=== PATIENT | female | born 1965 | race Caucasian/White ===

== ENCOUNTER 2016-06-26 09:24 | Observation (INO) | payer BC, SELFPAY ==
[2016-06-26 09:32] VITALS: BMI 25.0
[2016-06-26 09:54] LABS: AUTOMATED BASOPHIL 0.8 % (0-2); AUTOMATED EOSINOPHIL 5.6 % (0-5); AUTOMATED LYMPH 29.1 % (17-44); AUTOMATED MONOCYTE 5.3 % (3-10); AUTOMATED NEUTROPHIL 59.2 % (45-76); MPV 8.2 fL (7.4-10.4)
[2016-06-26] MEDS ORDERED: MORPHINE 4 MG/ML INJECTION IV ONE ×2 (09:55→12:14)
[2016-06-26] MEDS ORDERED: ONDANSETRON HCL 4 MG/2 ML VIAL IV ONE ×2 (09:55→12:14)
--- NOTE | 2016-06-26 10:02 | EDPRACDOC ---
<Rosa Pérez Aram - Last Filed: 06/26/16 12:33> - General Information Information Source: Patient - History of Present Illness Onset: 0500 HPI: C/o sudden onset generalized weakness and dizzyness 2 hours after waking up, accompanied with "stinging" bilateral chest pain radiating into both arms and both side of neck, with mild SOB, and N/V. Has had 2-3 episodes of same past week, but previous episodes resolved after 5-10 mins. Today sx did not resolve and are active here in ED. Also c/o a cough and RUQ pain intermittently, random pattern onset. Denies fever, sore throat, changes in urine or BM. Med hx = asthma, fibromyalgia, kidney stones. Surgical hx = c section, BTL. Symptoms Started: Reports: Suddenly Symptoms Description: Constant Weakness: Bilateral: Generalized Symptoms: Reports: Weak Associated signs and symptoms:: Reports: Chest pain, Nausea, Palpitations, Vomiting <Franklin Perkins - Last Filed: 06/26/16 19:14> - General Information Chief Complaint: Generalized Weakness Stated Complaint: SHOB/DIZZINESS Time Seen by Provider: 06/26/16 09:56 Home Medications: Home Medications Meclizine HCl [Antivert] 50 mg PO BID PRN 06/30/13 Fluticasone Propionate [Flonase] 1 - 2 spray CAPO DAILY PRN 01/26/15 Ranitidine HCl [Zantac 75] 150 mg PO DAILY PRN 01/26/15 Pregabalin [Lyrica] 75 mg PO TID 07/15/15 Albuterol Sulfate Nebs [Proventil, Ventolin] 3 ml INH QID PRN 06/26/16 Omeprazole 20 mg PO DAILY 06/26/16 Oxycodone HCl/Acetaminophen [Percocet 10-325 mg Tablet] 1 tab PO .SEE COMMENTS 06/26/16 Allergies/Adverse Reactions: Allergies Allergy/AdvReac Type Severity Reaction Status Date / Time aspirin Allergy Nausea/Vomi Verified 06/26/16 13:56 tin ED Past Medical History - History Reviewed Yes Nurses notes reviewed and agree except as marked - Patient Medical History Respiratory History: Reports: Asthma. Denies: Pneumonia GI/ History: Reports: Kidney Stones (right kidney) Psychological History: Reports: Depression Systemic History: Reports: Cancer (cervical - abnormal cells) Surgical History: Reports: Other ( and tubal ligation) Date of Last Radiation Treatment: 20 yrs ago - Family Medical History Reports: Hypertension (mother & MGF), Diabetes (mother & MGF), Cancer (MGM), Stroke, Cardiac Disorders (father) - Social Medical History Smoking Status: Never smoker <Franklin Perkins - Last Filed: 06/26/16 19:14> EDM Review of Systems - Review of Systems ROS Negative Except as Marked: Yes All systems reviewed and were negative except as marked Constitutional: Weakness Cardiovascular: Chest Pain Gastrointestinal: Nausea, Pain, Vomiting Neurological: Dizziness, Weakness <Franklin Perkins - Last Filed: 06/26/16 19:14> - Physical Exam Last recorded Vital Signs: Last Vital Signs Temp 98.5 F 06/26/16 09:31 Pulse 75 06/26/16 11:20 Resp 18 06/26/16 11:20 BP 119/70 06/26/16 11:20 Pulse Ox 99 06/26/16 11:20 Oxygen Pulse Oxygen Saturation 99 O2 Device Oxygen Flow Rate Fraction of Inspired Oxygen ( FIO2) <Rosa Pérez - Last Filed: 06/26/16 12:33> - Physical Exam Constitutional: Alert Oriented to: Time, Person, Place Last recorded Vital Signs: Last Vital Signs Temp 98.5 F 06/26/16 09:31 Pulse 93 06/26/16 09:31 Resp 18 06/26/16 09:31 BP 125/69 06/26/16 09:31 Pulse Ox 97 06/26/16 09:31 Oxygen Pulse Oxygen Saturation 97 O2 Device Oxygen Flow Rate Fraction of Inspired Oxygen ( FIO2) - HEENT Head: Normal Eye Exam: negative: Conjunctival Injection, Scleral Icterus Oropharynx: negative: Drooling TMJ: Normal Nose: No Symptoms Reported Neck: Normal - Respiratory/Cardiovascular Respiratory: Normal - CTA Cardiovascular: Normal - GI Tenderness: Moderate, RUQ Darden's Sign: Positive - Musculoskeletal Back: Normal Extremities: Normal - Integumentary Skin: Normal - Neurologic Mood Description: Normal Thought: Coherent <Franklin Perkins - Last Filed: 06/26/16 19:14> NIH Stroke Scale Initial Evaluation Level of Consciousness: Alert LOC- Question: Answers Both Correctly LOC Commands: Both Task Correctly Best Gaze: Normal Visual: No Visual Loss Facial Palsy: Normal Movement Motor Arm LEFT: No Drift Motor Arm RIGHT: No Drift Motor Leg LEFT: No Drift Motor Leg RIGHT: No Drift Limb Ataxia: Absent Sensory: Normal Best Language: No Aphasia Dysarthria: Normal Extinction and Inattention: No Abnormality (Neglect) Score: 0out of42 <Franklin Perkins - Last Filed: 06/26/16 19:14> - Neurologic Orientation: Time, Person, Place Speech: Fluent Coginitive: Normal Affect: Normal Thought: Coherent Perception: Normal <Franklin Perkins - Last Filed: 06/26/16 19:14> - Results 06/26/16 09:45 06/26/16 09:45 WBC 6.8 xk/uL (3.8-10.8) 06/26/16 09:45 RBC 4.94 xM/uL (4.20-5.40) 06/26/16 09:45 Hgb 15.8 g/dL (12.0-16.0) 06/26/16 09:45 Hct 45.8 % (36-47) 06/26/16 09:45 MCV 93 fL (81-99) 06/26/16 09:45 MCH 32.0 pg (27-32) 06/26/16 09:45 MCHC 34.5 g/dl (33-36) 06/26/16 09:45 RDW 12.6 % (11.5-14.5) 06/26/16 09:45 Plt Count 180 xk/uL (130-400) 06/26/16 09:45 MPV 8.2 fL (7.4-10.4) 06/26/16 09:45 Neut % (Auto) 59.2 % (45-76) 06/26/16 09:45 Lymph % (Auto) 29.1 % (17-44) 06/26/16 09:45 Estill % (Auto) 5.3 % (3-10) 06/26/16 09:45 Eos % (Auto) 5.6 % (0-5) H 06/26/16 09:45 Baso % (Auto) 0.8 % (0-2) 06/26/16 09:45 Absolute Neuts (auto) 4.01 xk/uL (1.7-8.2) 06/26/16 09:45 Absolute Lymphs (auto) 1.97 xk/uL (0.65-4.75) 06/26/16 09:45 PT 10.3 SEC (9.2-11.2) 06/26/16 09:45 INR 1.0 06/26/16 09:45 APTT 23.3 SEC (22-35) 06/26/16 09:45 Sodium 141 mEq/L (137-146) 06/26/16 09:45 Potassium 3.7 mEq/L (3.5-5.1) 06/26/16 09:45 Chloride 104 mEq/L (98-107) 06/26/16 09:45 Carbon Dioxide 29 mMOL/L (22-33) 06/26/16 09:45 Anion Gap 12 mEq/L (8-16) 06/26/16 09:45 BUN 12 MG/DL (7-17) 06/26/16 09:45 Creatinine 0.90 MG/DL (0.52-1.04) 06/26/16 09:45 Estimated GFR (MDRD) > 60 mL/min (>=60) 06/26/16 09:45 Glucose 96 MG/DL (70-99) 06/26/16 09:45 Calculated Osmolality 271 MOs/Kg (270-290) 06/26/16 09:45 Calcium 9.4 MG/DL (8.4-10.2) 06/26/16 09:45 Total Bilirubin 0.6 MG/DL (0.2-1.3) 06/26/16 09:45 AST 37 IU/L (14-36) H 06/26/16 09:45 ALT 42 IU/L (9-52) 06/26/16 09:45 Alkaline Phosphatase 96 IU/L (38-126) 06/26/16 09:45 Troponin I < 0.01 ng/mL (<.04) 06/26/16 09:45 Ffu-H-Czmvwybcrmw Pept 41 pg/mL (0-900) 06/26/16 09:45 Total Protein 7.4 G/DL (6.3-8.2) 06/26/16 09:45 Albumin 4.4 G/DL (3.5-5.0) 06/26/16 09:45 Lipase 45 U/L (23-300) 06/26/16 09:45 Urine Color Yellow 06/26/16 09:57 Urine Clarity Clear 06/26/16 09:57 Urine pH 6.0 (5.0-8.0) 06/26/16 09:57 Ur Specific Lincoln </=1.005 (1.003-1.035) 06/26/16 09:57 Urine Protein Neg (NEG/TRACE) 06/26/16 09:57 Urine Glucose (UA) Neg (NEGATIVE) 06/26/16 09:57 Urine Ketones Neg (NEGATIVE) 06/26/16 09:57 Urine Occult Blood Neg (NEG/TRACE) 06/26/16 09:57 Urine Nitrite Neg (NEGATIVE) 06/26/16 09:57 Urine Bilirubin Neg (NEGATIVE) 06/26/16 09:57 Urine Urobilinogen <2.0 MG/DL (0-1) 06/26/16 09:57 Ur Leukocyte Esterase Neg (NEGATIVE) 06/26/16 09:57 Urine RBC 0-2 (0-5) 06/26/16 09:57 Urine WBC 0-2 (0-5) 06/26/16 09:57 Ur Epithelial Cells Occ 06/26/16 09:57 Lab Results 06/26/16 06/26/16 06/26/16 09:57 09:45 09:45 WBC 6.8 RBC 4.94 Hgb 15.8 Hct 45.8 MCV 93 MCH 32.0 MCHC 34.5 RDW 12.6 Plt Count 180 MPV 8.2 Neut % (Auto) 59.2 Lymph % (Auto) 29.1 Estill % (Auto) 5.3 Eos % (Auto) 5.6 H Baso % (Auto) 0.8 Absolute Neuts (auto) 4.01 Absolute Lymphs (auto) 1.97 PT 10.3 INR 1.0 APTT 23.3 Sodium Potassium Chloride Carbon Dioxide Anion Gap BUN Creatinine Estimated GFR (MDRD) Glucose Calculated Osmolality Calcium Total Bilirubin AST ALT Alkaline Phosphatase Troponin I Pvb-L-Voufydzrrer Pept Total Protein Albumin Lipase Urine Color Yellow Urine Clarity Clear Urine pH 6.0 Ur Specific Lincoln </=1.005 Urine Protein Neg Urine Glucose (UA) Neg Urine Ketones Neg Urine Occult Blood Neg Urine Nitrite Neg Urine Bilirubin Neg Urine Urobilinogen <2.0 Ur Leukocyte Esterase Neg Urine RBC 0-2 Urine WBC 0-2 Ur Epithelial Cells Occ 06/26/16 09:45 WBC RBC Hgb Hct MCV MCH MCHC RDW Plt Count MPV Neut % (Auto) Lymph % (Auto) Estill % (Auto) Eos % (Auto) Baso % (Auto) Absolute Neuts (auto) Absolute Lymphs (auto) PT INR APTT Sodium 141 Potassium 3.7 Chloride 104 Carbon Dioxide 29 Anion Gap 12 BUN 12 Creatinine 0.90 Estimated GFR (MDRD) > 60 Glucose 96 Calculated Osmolality 271 Calcium 9.4 Total Bilirubin 0.6 AST 37 H ALT 42 Alkaline Phosphatase 96 Troponin I < 0.01 Dzq-P-Dcaduntvpkh Pept 41 Total Protein 7.4 Albumin 4.4 Lipase 45 Urine Color Urine Clarity Urine pH Ur Specific Lincoln Urine Protein Urine Glucose (UA) Urine Ketones Urine Occult Blood Urine Nitrite Urine Bilirubin Urine Urobilinogen Ur Leukocyte Esterase Urine RBC Urine WBC Ur Epithelial Cells <Rosa Pérez - Last Filed: 06/26/16 12:33> - Results 06/26/16 09:45 06/26/16 09:45 WBC 6.8 xk/uL (3.8-10.8) 06/26/16 09:45 RBC 4.94 xM/uL (4.20-5.40) 06/26/16 09:45 Hgb 15.8 g/dL (12.0-16.0) 06/26/16 09:45 Hct 45.8 % (36-47) 06/26/16 09:45 MCV 93 fL (81-99) 06/26/16 09:45 MCH 32.0 pg (27-32) 06/26/16 09:45 MCHC 34.5 g/dl (33-36) 06/26/16 09:45 RDW 12.6 % (11.5-14.5) 06/26/16 09:45 Plt Count 180 xk/uL (130-400) 06/26/16 09:45 MPV 8.2 fL (7.4-10.4) 06/26/16 09:45 Neut % (Auto) 59.2 % (45-76) 06/26/16 09:45 Lymph % (Auto) 29.1 % (17-44) 06/26/16 09:45 Estill % (Auto) 5.3 % (3-10) 06/26/16 09:45 Eos % (Auto) 5.6 % (0-5) H 06/26/16 09:45 Baso % (Auto) 0.8 % (0-2) 06/26/16 09:45 Absolute Neuts (auto) 4.01 xk/uL (1.7-8.2) 06/26/16 09:45 Absolute Lymphs (auto) 1.97 xk/uL (0.65-4.75) 06/26/16 09:45 Lab Results 06/26/16 09:45 WBC 6.8 RBC 4.94 Hgb 15.8 Hct 45.8 MCV 93 MCH 32.0 MCHC 34.5 RDW 12.6 Plt Count 180 MPV 8.2 Neut % (Auto) 59.2 Lymph % (Auto) 29.1 Estill % (Auto) 5.3 Eos % (Auto) 5.6 H Baso % (Auto) 0.8 Absolute Neuts (auto) 4.01 Absolute Lymphs (auto) 1.97 - EKG EKG #1 EKG Time: 09:40 -: Yes EKG interpreted by me Rate: bpm: 90 Rhythm: NSR ST: Normal Comparison: 04/09/09 (no sig change) - Diagnostic Imaging Other Image interpreted by: Radiologist EXAM: US ABDOMEN LIMITED - RIGHT UPPER QUADRANT COMPARISON: Abdominal CT 02/12/2016. FINDINGS: Gallbladder: There is borderline gallbladder wall thickening to 3.2 mm. No gallstones or pericholecystic fluid demonstrated. Sonographic Darden sign is reported to be positive by the drafter detail. Common bile duct: Diameter: 3.6 mm. Liver: No focal lesion identified. Within normal limits in parenchymal echogenicity. IMPRESSION: 1. Borderline gallbladder wall thickening with reported positive sonographic Darden sign suspicious for acalculous cholecystitis. Correlate clinically. 2. No biliary dilatation. Electronically Signed By: Albert Davis M.D. On: 06/26/2016 11:20 Chest Image interpreted by: Radiologist EXAM: CHEST 2 VIEW COMPARISON: Radiographs 11/29/2015 and 06/30/2013. FINDINGS: The heart size and mediastinal contours are normal. The lungs are clear. There is no pleural effusion or pneumothorax. No acute osseous findings are identified. IMPRESSION: Stable chest. No active cardiopulmonary process. Electronically Signed By: Albert Davis M.D. On: 06/26/2016 11:50 <Franklin Perkins - Last Filed: 06/26/16 19:14> - Departure Education/Counseling Given Regarding: Diagnosis, Treatment <Rosa Pérez - Last Filed: 06/26/16 12:33> - Departure Disposition: Admit IP To This Hospital Education/Counseling Given To: Patient, Family Member Decision to Admit Time: 12:10 (Dr Harmon) Decision to admit date: 06/26/16 Decision to admit: from ED <Franklin Perkins - Last Filed: 06/26/16 19:14> - Departure Condition: Stable Final Diagnosis: Cholecystitis
[2016-06-26 10:04] LABS: PARTIAL THROMB. TIME 23.3 SEC (22-35)
[2016-06-26 10:05] LABS: BLOOD UREA NITROGEN 12 MG/DL (7-17); CALCIUM 9.4 MG/DL (8.4-10.2); CALCULATED OSMOLALITY 271 MOs/Kg (270-290); CHLORIDE 104 mEq/L (98-107); GLUCOSE 96 MG/DL (70-99); SODIUM LEVEL 141 mEq/L (137-146); TOTAL PROTEIN 7.4 G/DL (6.3-8.2)
[2016-06-26 10:12] LABS: LEUKOCYTES/URINE NEG (NEGATIVE); NITRITE/URINE NEG (NEGATIVE); RBC/URINE 0-2 (0-5); URINE OCCULT BLOOD NEG (NEG/TRACE); WBC/URINE 0-2 (0-5)
--- NOTE | 2016-06-26 11:23 | DIRPT ---
CLINICAL DATA: Right upper quadrant abdominal pain radiating into the back for 2 weeks. Worsening symptoms with new onset of vomiting. EXAM: US ABDOMEN LIMITED - RIGHT UPPER QUADRANT COMPARISON: Abdominal CT 02/12/2016. FINDINGS: Gallbladder: There is borderline gallbladder wall thickening to 3.2 mm. No gallstones or pericholecystic fluid demonstrated. Sonographic Darden sign is reported to be positive by the billposter. Common bile duct: Diameter: 3.6 mm. Liver: No focal lesion identified. Within normal limits in parenchymal echogenicity. IMPRESSION: 1. Borderline gallbladder wall thickening with reported positive sonographic Darden sign suspicious for acalculous cholecystitis. Correlate clinically. 2. No biliary dilatation. Electronically Signed By: Albert Davis M.D. On: 06/26/2016 11:20
--- NOTE | 2016-06-26 11:53 | DIRPT ---
CLINICAL DATA: Sudden onset of generalized weakness with dizziness and shortness of breath. Recent similar episodes. EXAM: CHEST 2 VIEW COMPARISON: Radiographs 11/29/2015 and 06/30/2013. FINDINGS: The heart size and mediastinal contours are normal. The lungs are clear. There is no pleural effusion or pneumothorax. No acute osseous findings are identified. IMPRESSION: Stable chest. No active cardiopulmonary process. Electronically Signed By: Albert Davis M.D. On: 06/26/2016 11:50
[2016-06-26] MEDS ORDERED: MECLIZINE 25 MG TAB PO PRN (12:22)
[2016-06-26] MEDS ORDERED: SIMETHICONE 80 MG TAB PO PRN (12:24)
[2016-06-26] MEDS ORDERED: PROMETHAZINE 25 MG/ML VIAL IV PRN (12:24)
[2016-06-26] MEDS ORDERED: DOCUSATE-SENNA CONCENTRATE TAB PO PRN (12:24)
[2016-06-26] MEDS ORDERED: ONDANSETRON HCL 4 MG/2 ML VIAL IV PRN (12:24)
[2016-06-26] MEDS ORDERED: ACETAMINOPHEN 650 MG SUPP PR PRN (12:24)
[2016-06-26] MEDS ORDERED: MAGNESIUM HYDROXIDE 30 ML BOTTLE PO PRN (12:24)
[2016-06-26] MEDS ORDERED: Aluminum;Magnesium;Simethicone 30 ML UDC PO PRN (12:24)
[2016-06-26] MEDS ORDERED: ACETAMINOPHEN 325 MG/TAB TABLET PO PRN (12:24)
[2016-06-26] MEDS ORDERED: CEFOXITIN 1 GM in D5W 100 ML IV ONE (12:34)
[2016-06-26] MEDS: Albuterol/Ipratropium Neb 3 ML NEB NEB PRN (14:15)
[2016-06-26] MEDS: LR 1,000 ML IV SCH (14:32)
[2016-06-26] MEDS: MORPHINE 2 MG/ML INJECTION IV PRN ×3 (14:40→20:04)
--- NOTE | 2016-06-26 16:39 | HISTPHYS ---
- Chief Complaint right upper quadrant abdominal pain - History of Present Illness This is a 50 year old female that began having right upper quadrant pain two weeks ago. She reports that she had an episode of pain so severe that she felt dizzy. She reports that the pain starts in the right upper quadrant and radiates to the back. She reports that she has had mild nausea and a little bit of vomiting today. She reports two to three episodes of this pain. She reports a cough and congestion. - Medical History Cardiac History: Denies: No Significant History, Coronary Artery Disease, Atrial Fibrillation, Hypertension, Congestive Heart Failure, Heart Attack, Cardiac Catheterization, CABG, Stress Test, Hypercholesterolemia, Internal Defibrillator, Pacemaker, Cardiomyopathy, Valvular Heart Disease, Syncope, SVT, Other Respiratory History: Reports: Asthma. Denies: Pneumonia GI/ History: Reports: Kidney Stones (right kidney) Musculoskeletal History: Denies: No Significant History, Arthritis, Gout, Rheumatoid Arthritis, Osteoarthritis, Other Systemic History: Denies: No Significant History, Cancer, Anemia, Diabetes, Hyperthyroidism, Hypothyroidism, HIV, Lupus, Other Neurological History: Denies: No Significant History, Cerebrovascular Accident, Seizures, Migraine, Dementia, Epilepsy, Guillian-Marshall Syndrome, Parkinson's, Metabolic encephalopathy, Multiple Sclerosis, Myasthenia Gravis, Toxic Encephalopathy, Other Psychological History: Reports: Depression, Anxiety - Surgical History Reports: Other ( and tubal ligation) - Medictions/Allergies Allergies aspirin Allergy (Verified 06/26/16 13:56) Nausea/Vomiting Current Medication List: Reviewed Home Medications Meclizine HCl [Antivert] 50 mg PO BID PRN 06/30/13 Fluticasone Propionate [Flonase] 1 - 2 spray CAPO DAILY PRN 01/26/15 Ranitidine HCl [Zantac 75] 150 mg PO DAILY PRN 01/26/15 Pregabalin [Lyrica] 75 mg PO TID 07/15/15 Albuterol Sulfate Nebs [Proventil, Ventolin] 3 ml INH QID PRN 06/26/16 Omeprazole 20 mg PO DAILY 06/26/16 Oxycodone HCl/Acetaminophen [Percocet 10-325 mg Tablet] 1 tab PO .SEE COMMENTS 06/26/16 - Family History Reports: Hypertension (mother & MGF), Diabetes (mother & MGF), Cancer (MGM), Stroke, Cardiac Disorders (father) - Social History Travel Outside of [place] in the Last 3 Months?: No Lives: with Significant Other Smoking Status: Never smoker Social History: Denies: Amphetamine Use, Alcohol Use, Barbiturate Use, Benzodiazipine Use, Cocaine Use, Heroin Use, Marijuana Use, Methadone Use, MDMA (Ecstasy) Use, Substance Use Disorder - Review of Systems Yes All systems reviewed and were negative except as marked (twelve systems reviewed.) - Physical Exam Vital Signs: Initial Vitals Temperature 98.5 F 06/26/16 09:31 Pulse Rate 93 06/26/16 09:31 Respiratory Rate 18 06/26/16 09:31 Blood Pressure 125/69 06/26/16 09:31 Pulse Oxygen Saturation 97 06/26/16 09:31 Constitutional: Alert (Awake, Fully oriented. Normal and appropriate affect.Well appearing. Well nourished.), No apparent distress Oriented to: Time, Person, Place - HEENT Head: Normal (normocephalic, atraumatic.), Other (No cervical lymphadenopathy. No supraclavicular lymphadenopathy. Neck: No palpable mass, supple , trachea midline.) Eye: Normal (pupils equal, reactive to light, and round; EOMI, Sclera white) Oropharynx: Normal (Pharynx: Moist without exudate,Gums-no swelling, No oropharyngeal lesions or erythema, Mucous membranes are dry.) TMJ: Normal Nose: No Symptoms Reported (septum midline, Nares patent, without discharge or bleeding.) Respiratory: Normal - CTA (Clear to auscultation bilaterally. No wheezing, rales , rhonchi. Chest wall movements are symmetric. No use of accessory muscles to breathe.) Cardiovascular: Normal (RRR , Normal S1, S2. No murmurs, rubs, or gallops. PMI non-displaced. Carotids: no carotid bruits. No bradycardia or tachycardia. DP pulses 2+ bilaterally.) - GI Auscultation: Normal (normal active sounds) Palpation: Normal (Soft,non distended,nontender. No hepatosplenomegaly.) Tenderness: Moderate, RUQ Darden's Sign: Negative - Musculoskeletal Back: Normal (Non-Tender) Extremities: Normal (Normal tone, DP pulses 2+ bilaterally, No cyanosis or edema bilaterally, FROM bilaterally.) - Integumentary Skin: Normal (Clean, dry, and intact. No rashes. No lesions.) Lymphatics: Normal (No cervical lymphadenopathy. No supraclavicular lymphadenopathy.) - Neurologic Memory Impaired: Normal Motor Function: Normal (Motor 5/5 throughout.Normal tone, Pulses 2+ No cyanosis or edema, FROM) Cranial Nerve: Normal (CN II-XII intact sensation, strength 5/5) Cerebellar: Normal (Babinski: toes downgoing bilaterally. Intact Finger to nose. Sensory grossly intact to light touch. Intact rapid alternating movements bilaterally. No pronator drift.) Mood Description: Normal (Fully oriented. Normal and appropriate affect.) Perception: Normal (Normal and appropriate affect.) - Lab Results 06/26/16 09:45 06/26/16 09:45 - Diagnostic Findings 06/26/16 09:45 06/26/16 09:45 Final Report CLINICAL DATA: Right upper quadrant abdominal pain radiating into the back for 2 weeks. Worsening symptoms with new onset of vomiting. EXAM: US ABDOMEN LIMITED - RIGHT UPPER QUADRANT COMPARISON: Abdominal CT 02/12/2016. FINDINGS: Gallbladder: There is borderline gallbladder wall thickening to 3.2 mm. No gallstones or pericholecystic fluid demonstrated. Sonographic Darden sign is reported to be positive by the transit manager. Common bile duct: Diameter: 3.6 mm. Liver: No focal lesion identified. Within normal limits in parenchymal echogenicity. IMPRESSION: 1. Borderline gallbladder wall thickening with reported positive sonographic Darden sign suspicious for acalculous cholecystitis. Correlate clinically. 2. No biliary dilatation. Electronically Signed By: Albert Davis M.D. On: 06/26/2016 11:20 - Assessment/Plan (1) Right upper quadrant abdominal pain R10.11 - RIGHT UPPER QUADRANT PAIN Acute Present on Admission: Yes Comment: We will obtain a HIDA scan to evaluate cystic duct patency and to evaluate ejection fraction. Further recommendations pending the results of the HIDA scan. I discussed the treatment plan with the patient. All questions were answered. (2) Asthma J45.909 - UNSPECIFIED ASTHMA, UNCOMPLICATED Chronic Present on Admission: Yes mild intermittent Comment: Breathing treatments have been started. Case Care Discussed with: Patient, Nursing Staff
[2016-06-26] MEDS ORDERED: RANITIDINE 150 MG TAB PO PRN (21:00)
[2016-06-26] MEDS: OXYCODONE HCL 5 MG TABLET PO PRN (22:29)
[2016-06-26] MEDS: IBUPROFEN 600 MG TAB PO PRN (22:30)
[2016-06-27] MEDS: LR 1,000 ML IV SCH ×3 (00:21→19:15)
[2016-06-27] MEDS: MORPHINE 2 MG/ML INJECTION IV PRN ×4 (00:27→15:37)
[2016-06-27] MEDS: Albuterol/Ipratropium Neb 3 ML NEB NEB PRN (01:24)
[2016-06-27] MEDS ORDERED: PANTOPRAZOLE 40 MG TAB PO SCH (06:00)
[2016-06-27] MEDS ORDERED: PNEUMOCOCCAL 0.5 ML VIAL IM ONE (08:00)
[2016-06-27] MEDS ORDERED: FLU VACCINE (Afluria) 0.5 ML DOSE IM ONE (08:00)
[2016-06-27] MEDS ORDERED: Non-Formulary Medication ITEM (Omeprazole [Omeprazole] 20 MG) PO SCH (09:00)
--- NOTE | 2016-06-27 12:47 | PCM.SURGRO ---
- Subjective Chief Complaint: headache Hospital Day #: 2 (right upper quadrant abdominal pain) Patient: Reports: Feels better (Patient reports much less abdominal pain but now has a severe headache), Flatus, Afebrile. Denies: Nausea, Vomiting, Shortness of breath - Objective / Physical Exam Vital Signs: Temperature: 97.6 F (06/27/16 12:12) HR: 69 (06/27/16 12:12)RR: 16 (06/27/16 12: 12) BP: 98/54 (06/27/16 12:12)Pulse Ox: 96 (06/27/16 12:12) General: Alert, Oriented x3, Cooperative, No acute distress HEENT: Normal, Anicteric Sclera, Mucous membr. moist/pink Respiratory: Normal - CTA Cardiovascular: Regular rate and rhythm Gastrointestinal: Soft, Bowel Sounds. negative: Distended, Tender (mild tenderness upper abdomen) Extremities: negative: Swelling, Edema Psych/Mental Status: Appropriate, Normal Affect, Cooperative. negative: Agitated, Anxious Neurological: Normal speech Skin: Warm,Dry and Intact, No rashes Lymphatics: Normal - Assessment and Plan (1) Right upper quadrant abdominal pain Acute R10.11 - RIGHT UPPER QUADRANT PAIN Present on Admission: Yes Comment/Plan: We will await the results of the HIDA scan. Further recommendations pending the results of the HIDA scan. (2) Asthma Chronic J45.909 - UNSPECIFIED ASTHMA, UNCOMPLICATED Present on Admission: Yes mild intermittent Comment/Plan: Breathing treatments have been ordered. - Review of Systems Yes All systems reviewed and were negative except as marked (twelve systems reviewed with the patient)
[2016-06-27] MEDS ORDERED: MEBROFENIN 5 MCI V IV ONE (13:32)
--- NOTE | 2016-06-27 15:35 | DIRPT ---
CLINICAL DATA: Right upper quadrant abdominal pain EXAM: NUCLEAR MEDICINE HEPATOBILIARY IMAGING TECHNIQUE: Sequential images of the abdomen were obtained out to 60 minutes following intravenous administration of radiopharmaceutical. RADIOPHARMACEUTICALS: 4.5 mCi Tc-99m Choletec IV COMPARISON: 06/26/2016 FINDINGS: Following the IV administration of contrast material there is uniform tracer uptake by the liver with clearance from blood pool. Radiotracer accumulation within the gallbladder occur is within 23 minutes. The gallbladder ejection fraction was calculated equal 94%. Patient reported right upper quadrant pain and chest tightness with CCK administration. IMPRESSION: 1. Patent cystic duct without evidence for acute cholecystitis. 2. Normal gallbladder ejection fraction. Electronically Signed By: Crystal Roman M.D. On: 06/27/2016 15:33
[2016-06-27] MEDS: OXYCODONE HCL 5 MG TABLET PO PRN ×2 (16:06→20:04)
[2016-06-27] MEDS ORDERED: PROMETHAZINE 25 MG TAB PO PRN (16:34)
[2016-06-27] MEDS: IBUPROFEN 600 MG TAB PO PRN (17:36)
[2016-06-27 21:44] VITALS: BP 92/55; PULSE 77; TEMP 98.1
--- NOTE | 2016-06-27 21:59 | PCM.DCS92 ---
- Final/Secondary Discharge Diagnosis (1) Right upper quadrant abdominal pain Acute R10.11 - RIGHT UPPER QUADRANT PAIN Present on Admission: Yes (2) Asthma Chronic J45.909 - UNSPECIFIED ASTHMA, UNCOMPLICATED Present on Admission: Yes mild intermittent Discharge Disposition: Home Discharge Condition: Improved Cognitive Discharge Status: Unimpaired Fuctional Discharge Status: Independent Physician Follow up/Referrals: Eliu Navarrete MD [Primary Care Provider] - One Week Arnulfo Harmon DO [Staff Physician] - Call for Appointment New Prescriptions: Oxycodone Immediate Release [Oxy-Ir] 5 mg PO Q6H PRN #40 tab PRN Reason: Pain Promethazine [Phenergan] 25 mg PO Q4H PRN #30 tab PRN Reason: Nausea/Vomiting Ondansetron HCl [Zofran] 4 mg PO Q8H PRN #30 tablet PRN Reason: Nausea/Vomiting Diet at Discharge: As Tolerated, Regular Activity: No Heavy Lifting, No Driving (No Driving while taking the prescription analgesics.) Call Office For: Worsening Symptoms, Fever over 101 F, Pain Uncontrolled By Meds , Other (See Details) (chest pain or difficulty breathing) Discontinue use of:: Alcohol, All Illegal Substances, All Types of Tobacco - DC Summary Notes Hospital Course Note:: Discharge summary on patient named DM HASTINGS admitted to [facility] on 06/26/16 by Arnulfo aHrmon DO. The patient initially had pain in the right upper quadrant of the abdomen. An ultrasound demonstrated mild thickening of the gallbladder wall. The patient was admitted. Intravenous fluids, analgesics and antiemetics were initiated. A hepatobiliary scan was performed with no evidence of acute cholecystitis or biliary dyskinesia. The patient's diet was advanced, which she was able to tolerate. She denies chest pain or shortness of breath. She stated that she wanted to go home. Full and careful discharge instructions were discussed with the patient. All questions were answered. Date of discharge is 06/27/16. Discharge condition: stable Final discharge diagnosis: Nausea and vomiting. Wound Care Surgical Site: No May Shower Starting:: 06/27/16 Ability To Perform Care (if applicable): Yes - Physical Exam Vital Signs: Initial Vitals Temperature 98.5 F 06/26/16 09:31 Pulse Rate 93 06/26/16 09:31 Respiratory Rate 18 06/26/16 09:31 Blood Pressure 125/69 06/26/16 09:31 Pulse Oxygen Saturation 97 06/26/16 09:31 Constitutional: Alert (Awake, Fully oriented. Normal and appropriate affect.Well appearing. Well nourished.), No apparent distress Oriented to: Time, Person, Place - HEENT Head: Normal (normocephalic, atraumatic.), Other (No cervical lymphadenopathy. No supraclavicular lymphadenopathy. Neck: No palpable mass, supple , trachea midline.) Eye: Normal (pupils equal, reactive to light, and round; EOMI, Sclera white). negative: Pale Conjunctiva, Scleral Icterus Oropharynx: Normal (Pharynx: Moist without exudate,Gums-no swelling, No oropharyngeal lesions or erythema, Mucous membranes are dry.) TMJ: Normal Nose: No Symptoms Reported (septum midline, Nares patent, without discharge or bleeding.) Respiratory: Normal - CTA (Clear to auscultation bilaterally. No wheezing, rales , rhonchi. Chest wall movements are symmetric. No use of accessory muscles to breathe.) Cardiovascular: Normal (RRR , Normal S1, S2. No murmurs, rubs, or gallops. PMI non-displaced. Carotids: no carotid bruits. No bradycardia or tachycardia. DP pulses 2+ bilaterally.) - GI Auscultation: Normal (normal active sounds) Palpation: Normal (Soft,non distended,nontender. No hepatosplenomegaly.) Tenderness: Non tender (No rebound or guarding) Darden's Sign: Negative Rectal Exam: Deferred - Musculoskeletal Back: Normal (Non-Tender) Extremities: Normal (Normal tone, DP pulses 2+ bilaterally, No cyanosis or edema bilaterally, FROM bilaterally.) - Integumentary Skin: Normal (Clean, dry, and intact. No rashes. No lesions.) Lymphatics: Normal (No cervical lymphadenopathy. No supraclavicular lymphadenopathy.) - Neurologic Memory Impaired: Normal Motor Function: Normal (Motor 5/5 throughout.Normal tone, Pulses 2+ No cyanosis or edema, FROM) Cranial Nerve: Normal (CN II-XII intact sensation, strength 5/5) Cerebellar: Normal (Babinski: toes downgoing bilaterally. Intact Finger to nose. Sensory grossly intact to light touch. Intact rapid alternating movements bilaterally. No pronator drift.) Mood Description: Normal (Fully oriented. Normal and appropriate affect.) Perception: Normal (Normal and appropriate affect.)
== END 2016-06-27 22:25 | disposition home or self-care (01) ==
LOC: ED 09:24 → MASU 12:23
PROVIDERS: ADMIT Surgery; ATTEND Surgery
DX: R10.11 Right upper quadrant pain (principal); J45.909 Unspecified asthma, uncomplicated; R06.02 Shortness of breath; R05 Cough
CPT/HCPCS: 36415; 71020; 76705; 78227; 80053; 81001; 83690; 83880; 84484; 85025; 85610; 85730; 93005; 94640; 96374; 96375; 96376; 99284; A9537; G0237; G0378; J0694; J2270; J2405; J3490; J7060; J7620